=== PATIENT | female | born 1995 | race American Indian/Alaskan Native ===

== ENCOUNTER 2019-10-09 00:32 | Outpatient (CLI) | payer MEDICAID ==
--- NOTE | 2019-10-09 01:17 | Event Note ---
Date: 10/09/19 S: Pt is a 24 yo at 40.2 weeks EGA who presents to triage for the third time in two days with partner. She reports uterine contractions increasing in frequency. She denies LOF or vaginal bleeding, reports positive movement. She has received care with [facility] since 11 weeks EGA. She reports an uncomplicated . SVE earlier today was 3.5/thick/high. O: Baseline FHR 120 bpm, +accels, no decels, mod variability Contractions q3-5 minutes without cervical change SVE remains 3.5/thick/high A: Early labor Vital signs stable FHT Category 1 P: Administer Vistaril and Tylenol #3 Offered walking at hospital or early labor at home, pt prefers early labor at home Return to hospital if LOF, bleeding, decreased movement, increased intensity of contractions Pt and partner express understanding and agree with plan
[2019-10-09 01:19] VITALS: BP 125/77
[2019-10-09] MEDS ORDERED: ACETAMINOPHEN W/CODEINE 300-30 MG TAB PO ONE (01:44)
== END 2019-10-09 01:46 | disposition home or self-care (01) ==
LOC: TRG 00:32
PROVIDERS: ATTEND Obstetrics & Gynecology
DX: O47.1 False labor at or after 37 completed weeks of gestation (principal); Z3A.40 40 weeks gestation of pregnancy
CPT/HCPCS: 59025; Q0177